=== PATIENT | male | born 1995 | race Caucasian/White ===

== ENCOUNTER → 2016-06-29 | Outpatient (CLI) | payer OTHER | LOC: RAD 08:30 | PROVIDERS: ATTEND General Practice | DX: I70.1 Atherosclerosis of renal artery (principal) | CPT/HCPCS: 93975 ==

== ENCOUNTER 2016-09-26 17:43 | Emergency (ER) | payer SELFPAY ==
[2016-09-26] MEDS ORDERED: ONDANSETRON 4 MG TAB.RAPDIS PO ONE (18:32)
--- NOTE | 2016-09-26 18:34 | ER Document Report ---
ED Medical Screen (RME) - General Chief Complaint: Abdominal Pain Stated Complaint: ABDOMINAL PAIN Time Seen by Provider: 09/26/16 18:26 Mode of Arrival: Ambulatory Information source: Patient Notes: This is a 21-year-old male with a previous history of hypertension who presents with upper abdominal pain and vomiting for the past several weeks. He states that he is concerned that he may have an ulcer. He reports daily vomiting and states that he has missed too much work for this and so he decided to be evaluated today. No fevers or chills. He has prescribed antihypertensive medication but he has not taken the medicine in several days secondary to persistent vomiting and abdominal pain. He denies alcohol use. No prior history of gastritis or GERD or peptic ulcer disease. He did note some light red blood in his emesis this morning. I have greeted and performed a rapid initial assessment of this patient. A comprehensive ED assessment and evaluation of the patient, analysis of test results and completion of the medical decision making process will be conducted by additional ED providers. TRAVEL OUTSIDE OF THE [place] IN LAST 30 DAYS: No - Related Data Allergies/Adverse Reactions: No Known Allergies Allergy (Verified 09/26/16 18:18) Past Medical History Renal/ Medical History: Denies: Hx Peritoneal Dialysis Physical Exam - Vital signs Vitals: Temp Pulse Resp BP Pulse Ox 98.5 F 67 16 146/100 H 100 09/26/16 17:49 09/26/16 17:49 09/26/16 17:49 09/26/16 17:49 09/26/16 17:49 - General General appearance: Appears well In distress: None - Respiratory Respiratory status: No respiratory distress Breath sounds: Normal. No: Rales, Rhonchi, Wheezing - Cardiovascular Rhythm: Regular Heart sounds: Normal auscultation, S1 appreciated, S2 appreciated Murmur: No Course - Vital Signs Vital signs: Temp Pulse Resp BP Pulse Ox 98.5 F 67 16 146/100 H 100 09/26/16 17:49 09/26/16 17:49 09/26/16 17:49 09/26/16 17:49 09/26/16 17:49
[2016-09-26 19:00] LABS: ABSOLUTE EOSINOPHILS # (AUTO) 0.1 10^3/uL (0.0-0.6); ABSOLUTE LYMPHOCYTES (AUTO) 2.5 10^3/uL (0.5-4.7); ABSOLUTE MONOCYTES (AUTO) 0.7 10^3/uL (0.1-1.4); ABSOLUTE NEUT (AUTO) 4.1 10^3/uL (1.7-8.2); BASOPHILS % (AUTO) 0.4 % (0-2); EOSINOPHILS % (AUTO) 1.3 % (0-6); HEMATOCRIT 46.1 % (37.9-51.0); HEMOGLOBIN 15.4 g/dL (13.5-17.0); HGB HCT DIFFERENCE 0.1; LYMPHOCYTES % (AUTO) 34.1 % (13-45); MEAN CORPUSCULAR HEMOGLOBIN 30.1 pg (27.0-33.4); MEAN CORPUSCULAR HGB CONC 33.4 g/dL (32.0-36.0); MEAN CORPUSCULAR VOLUME 90 fl (80-97); MONOCYTES % (AUTO) 8.9 % (3-13); RED BLOOD COUNT 5.12 10^6/uL (4.35-5.55); RED CELL DISTRIBUTION WIDTH 12.6 % (11.5-14.0); SEGMENTED NEUTROPHILS % (AUTO) 55.3 % (42-78); WHITE BLOOD COUNT 7.4 10^3/uL (4.0-10.5)
[2016-09-26] MEDS ORDERED: LIDOCAINE 2% VISCOUS SOLN 20 ML UDCUP PO ONE (19:23)
[2016-09-26] MEDS ORDERED: MAG HYDROX/AL HYDROX/SIMETH SUSP 30 ML UDCUP PO ONE (19:23)
[2016-09-26] MEDS ORDERED: METOCLOPRAMIDE HCL ORAL SOLN 10 MG/10 ML UDCUP PO ONE (19:23)
[2016-09-26 19:27] LABS: ALANINE AMINOTRANSFERASE 35 U/L (21-72); ALKALINE PHOSPHATASE 60 U/L (38-126); ANION GAP 13 (5-19); ASPARTATE AMINO TRANSFERASE 25 U/L (17-59); BILIRUBIN,DIRECT 0.3 mg/dL (0.0-0.4); BILIRUBIN,TOTAL 0.9 mg/dL (0.2-1.3); BLOOD UREA NITROGEN 16 mg/dL (7-20); CALCIUM 9.8 mg/dL (8.4-10.2); CARBON DIOXIDE 29 mmol/L (22-30); CHLORIDE 101 mmol/L (98-107); CREATININE RESULT 1.16 mg/dL (0.52-1.25); GLUCOSE 93 mg/dL (75-110); POTASSIUM 4.7 mmol/L (3.6-5.0); SODIUM 142.9 mmol/L (137-145); TOTAL PROTEIN 8.2 g/dL (6.3-8.2)
--- NOTE | 2016-09-26 20:05 | ER Document Report ---
ED GI/ - General Mode of Arrival: Ambulatory Information source: Patient TRAVEL OUTSIDE OF THE [place] IN LAST 30 DAYS: No <TALYA MATHEW - Last Filed: 09/27/16 03:37> <ADELE DELONG - Last Filed: 10/09/16 11:19> - General Chief Complaint: Abdominal Pain Stated Complaint: ABDOMINAL PAIN Time Seen by Provider: 09/26/16 18:26 Notes: Patient is a 21-year-old male that presents to the emergency department today with complaint of abdominal pain. Patient states he believes he has gastric ulcers. Patient states he has noticed abdominal pain for approximately 1 month and it has gotten worse over the last few days. Patient states he went from throwing up almost every time he consumed any to having no an appetite at all. Patient states he also has had vomiting and diarrhea. Patient states he has noticed blood in his vomit but denies any black or tarry stools. (TALYA MATHEW) - Related Data Allergies/Adverse Reactions: No Known Allergies Allergy (Verified 09/26/16 18:18) Past Medical History - General Information source: Patient - Social History Smoking Status: Never Smoker Cigarette use (# per day): No Frequency of alcohol use: None Drug Abuse: None Lives with: Family Family History: Reviewed & Not Pertinent Patient has suicidal ideation: No Patient has homicidal ideation: No - Medical History Medical History: Negative Renal/ Medical History: Denies: Hx Peritoneal Dialysis Surgical Hx: Negative <TALYA MATHEW - Last Filed: 09/27/16 03:37> Review of Systems - Review of Systems Constitutional: No symptoms reported EENT: No symptoms reported Cardiovascular: No symptoms reported Respiratory: No symptoms reported Gastrointestinal: See HPI, Abdominal pain, Diarrhea, Nausea, Vomiting, Blood in vomit. denies: Black stools Genitourinary: No symptoms reported Male Genitourinary: No symptoms reported Musculoskeletal: No symptoms reported Skin: No symptoms reported Hematologic/Lymphatic: No symptoms reported Neurological/Psychological: No symptoms reported -: Yes All other systems reviewed and negative <TALYA MATHEW - Last Filed: 09/27/16 03:37> Physical Exam <TALYA MATHEW - Last Filed: 09/27/16 03:37> <ADELE DELONG - Last Filed: 10/09/16 11:19> - Vital signs Vitals: Temp Pulse Resp BP Pulse Ox 98.5 F 67 16 146/100 H 100 09/26/16 17:49 09/26/16 17:49 09/26/16 17:49 09/26/16 17:49 09/26/16 17:49 - Notes Notes: Physical Exam: General: Alert, appears well. HEENT: Normocephalic. Atraumatic. PERRL. Extraocular movements intact. Oropharynx clear. Neck: Supple. Non-tender. Respiratory: No respiratory distress. Clear and equal breath sounds bilaterally. Cardiovascular: Regular rate and rhythm. Abdominal: Mild epigastric tenderness with palpation. Non-tender. No distension. Normal Bowel Sounds. Back: Non-tender. No deformity or step off. Extremities: Moves all four extremities. Upper extremities: Normal inspection. Normal ROM. Lower extremities: Normal inspection. No edema. Normal ROM. Neurological: Normal cognition. AAOx4. Normal speech. Psychological: Normal affect. Normal Mood. Skin: Warm. Dry. Normal color. (TALYA MATHEW) Course - Laboratory Result Diagrams: 09/26/16 18:46 09/26/16 18:46 <TALYA MATHEW - Last Filed: 09/27/16 03:37> - Laboratory Result Diagrams: 09/26/16 18:46 09/26/16 18:46 <ADELE DELONG - Last Filed: 10/09/16 11:19> - Re-evaluation Re-evalutation: 09/26/16 22:17 Patient presents the emergency department with a weeks worth of history of epigastric abdominal pain retching and specks of blood. It is missed multiple episodes at work so he came in here try to get assessed does not have a primary care physician. He denies drinking any alcohol but does take NSAIDs occasionally denies smoking. On examination his blood pressure is elevated to the vomit so he has not taken his blood pressure medication in 7 days. He is well-appearing nontoxic no acute distress sitting actually fully clothed watching TV. On examination he has mild epigastric tenderness no associated guarding rebound rigidity pulsatile dullness of the hernia. Laboratory evaluation is nonacute H&H are stable no pancreatitis. Start him on Zofran Prilosec Carafate enema family doctor for follow-up to call for follow-up in the next 2-3 days referral to gastric specialist if he continues to have ongoing problems he may need a scope and discussed reasons for ED return sooner (ADELE DELONG) - Vital Signs Vital signs: Temp Pulse Resp BP Pulse Ox 97.8 F 66 16 152/95 H 100 09/26/16 22:25 09/26/16 22:25 09/26/16 22:25 09/26/16 22:25 09/26/16 22:25 Discharge <TALYA MATHEW - Last Filed: 09/27/16 03:37> <ADELE DELONG - Last Filed: 10/09/16 11:19> - Discharge Clinical Impression: Abdominal pain, Gastritis Condition: Stable Disposition: HOME, SELF-CARE Instructions: Abdominal Pain ([facility]) Additional Instructions: Abdominal Pain There are many causes of abdominal pain. Pain can mean a serious problem requiring surgery (such as appendicitis). It can also be an innocent problem that goes away on its own (such as a viral infection). Often, time must pass to determine the cause of pain. The physician does not feel that hospitalization is necessary, at present. Things may change within the next 24 hours. Call the doctor or come back for re- examination if any problems occur, such as: (1) Pain that becomes more severe, steady, or becomes concentrated in one specific area. Also, pain that is more severe with movement or coughing. (2) Vomiting that persists or becomes more frequent. (3) Blood in the vomitus, urine, or bowel movements. Blood in the stool may have a tarry or black appearance. (4) Shaking chills or fever greater than 100 degrees F. (5) The abdomen becomes more distended or swollen. (6) Bowel movements cease. (7) Failure to improve as expected. Gastritis You have an inflammation of the stomach called gastritis. This commonly causes upper abdominal pain, nausea, and vomiting. In severe cases, bleeding of the stomach lining can occur. Gastritis can be caused by bacteria or viruses , alcohol, or stomach-irritating drugs. Begin with sips of clear liquids. Take increasing amounts of fluid over the first 24 hours. Then start small amounts of bland foods (such as dry toast , applesauce, mashed potato). Gradually resume your usual diet. You should take antacids every two hours until the pain has subsided. Acid -suppressing drugs may be prescribed as well. Avoid aspirin, caffeine, tobacco , and alcohol. If the abdominal pain worsens, or there is evidence of major bleeding in the stomach (such as black, tarry stool, bloody or black vomit, or lightheadedness), you should return immediately. Call the doctor if you aren't improved in 24 to 36 hours. Prescriptions: Omeprazole Magnesium [Prilosec Otc] 20 mg PO DAILY #12 tablet. Ondansetron [Zofran Odt 4 mg Tablet] 1 - 2 tab PO Q4H PRN #15 tab.rapdis PRN Reason: For Nausea/Vomiting Sucralfate [Carafate 1 gm Tablet] 1 gm PO ACHS #20 tablet Referrals: JEVON REBOLLEDO MD [ACTIVE STAFF] - (For an appointment to be seen in follow-up in 3-4 days return for increasing worsening or new symptoms) Scribe Attestation: 09/26/16 22:17 I personally performed the services described in the documentation reviewed the documentation recorded by my scribe in my presence and it accurately and completely records my words and actions (ADELE DELONG) Scribe Documentation - Scribe Written by Kina:: Kina Sanchez, 09/27/2016 0340 acting as scribe for :: Cody <TALYA MATHEW - Last Filed: 09/27/16 03:37>
[2016-09-26 22:27] VITALS: BP 152/95
== END 2016-09-26 22:27 | disposition home or self-care (01) ==
LOC: ER 17:43
DX: R10.13 Epigastric pain (principal); K29.70 Gastritis, unspecified, without bleeding; I10 Essential (primary) hypertension; R11.0 Nausea
CPT/HCPCS: 99284; 36415; 83690; 85025; 80053; S0119; J3490